=== PATIENT | male | born 1980 | race Two or more races ===

== ENCOUNTER → 2019-11-10 | Emergency (ER) | payer SELFPAY ==
--- NOTE | 2019-11-10 12:25 | Emergency Room Report ---
History of Present Illness General Chief Complaint: I want mental health help Source: Patient Present Illness HPI 39-year-old male history of schizophrenia presents with head trauma that occurred earlier in the day patient was evaluated at [facility] was cleared however he left AGAINST MEDICAL ADVICE, patient refuses to be examined states he feels fine and only wants to talk to a psychiatrist as spoke with patient stating that we need to first evaluate your head trauma and make sure you are cleared because we do not have [facility] medical records he currently states he has discharge papers which were reviewed however they were only discharge instructions patient is refusing answer questions history is very limited due to patient's aggressiveness Patient History Limited by: other - Being very combative and agitated refusing answer questions Reviewed Nursing Documentation: PMH: Agreed; PSxH: Agreed Review of Systems All Other Systems: limited Physical Exam General Appearance: well appearing, no apparent distress Head: normocephalic, other - Dry blood on scalp ENT: hearing grossly normal, normal voice Neck: full range of motion, supple Respiratory: no respiratory distress, speaking full sentences Neurologic: alert, normal gait Psychiatric: anxious Skin: no rash Medical Decision Making Diagnostic Impression: Primary Impression: Head injury ER Course 39-year-old male presents with head trauma, psychiatric illness patient is refusing to be evaluated he states that he is aware patient was stopped by police who interviewed him patient states he is aware that he has dry blood on his head is leaving AGAINST MEDICAL ADVICE, patient then eloped out of the ED. Please stopped him while he was outside he was on holdable due to patient being cognizant and aware of the repercussions of not being fully evaluated by a doctor The patient has requested to leave the ED against medical advice. The patient reason(s) for leaving include, but are not limited to, the following: I just want to see psychiatry. I believe this patient is of sound mind and competent to refuse medical care. The patient is responding and asking questions appropriately. The patient is oriented to person, place and time. The patient is not psychotic, delusional, suicidal, homicidal or hallucinating. The patient demonstrates a normal mental capacity to make decisions regarding their healthcare. The patient is clinically sober and does not appear to be under the influence of any illicit drugs at this time. The patient has been advised of the risks, in layman terms, of leaving AMA which include, but are not limited to , coma, permanent disability, loss of current lifestyle, delay in diagnosis. Alternatives have been offered - the patient remains steadfast in their wish to leave. The patient has been advised that should they change their mind they are welcome to return to this hospital, or any other, at any time. The patient understands that in no way does an AMA discharge mean that I do not want them to have the best medical care available. To this end, I have provided appropriate prescriptions, referrals, and discharge instructions. The patient did not sign AMA paperwork. The above discussion was witnessed by another member of staff. Disposition: ELOPED Condition: Stable Referrals: NOT CHOSEN IPA/,REFERRING (PCP) Alexandru Hoffman MD Nov 10, 2019 12:25
== END | disposition left against medical advice (07) ==
LOC: EDBD 12:00 → EMR 12:11
DX: S09.90XA Unspecified injury of head, initial encounter (principal); F20.9 Schizophrenia, unspecified; X58.XXXA Exposure to other specified factors, initial encounter; Y92.9 Unspecified place or not applicable
CPT/HCPCS: 99281